=== PATIENT | female | born 1935 | race Caucasian/White ===

== ENCOUNTER 2016-11-23 09:24 | Emergency (ER) | payer OTHER ==
[~2016-11-23] VITALS: Ht 149.9 cm; Wt 54.4 kg
[~2016-11-23 09:24] MED LIST: IMODIUM 2 MG. CA2 MG PO; ZOFRAN ODT4 MG SL
[2016-11-23 09:27] VITALS: BP 132/73
--- NOTE | 2016-11-23 09:35 | ED GI/GU/ABDOMINAL COMPLAINT ---
History of Present Illness General Chief Complaint: Abdominal Pain/Flank Pain Stated Complaint: BURNING IN ESOPHAGUS, BLACK STOOL, ABD PAIN Source: patient Exam Limitations: no limitations Vital Signs & Intake/Output Vital Signs & Intake/Output Vital Signs Date Time Temp Pulse Resp B/P B/P Pulse O2 O2 Flow FiO2 Mean Ox Delivery Rate 11/23 0927 98.0 77 16 132/73 98 Room Air Allergies Coded Allergies: MDX - Benzocaine (From ZILACTIN-B) (Intermediate, HIVES 04/15/14) nausea/vomiting too codeine (SICK TO STOMACH 11/23/16) Reconcile Medications Lidocaine HCl (Lidocaine HCl Viscous) 2 % SOLUTION 15 ML PO TID GERD Loperamide HCl (Loperamide) 2 MG CAP 1 CAP PO SEE ADMIN CRITERIA PRN DIARRHEA 2 TABS AFTER NEXT LOOSE STOOL THEN 1 TAB AFTER EACH LOOSE STOOL UP TO 7 PER DAY Ondansetron (Zofran Odt) 4 MG ODT 1 ODT SL Q6P PRN NAUSEA Triage Note: PT TO TRIAGE C/O BURNING IN STOMACH AND ESOPHAGUS SINCE YESTERDAY WORSE WITH LAYING DOWN. STATES SHE HAS BEEN HAVING DIARRHEA SINCE THURSDAY AND STARTED HAVING DRY HEAVING THIS AM. STATES HER STOOL THIS AM WAS LOOSE AND BLACK. HAS BEEN USING PEPTO BISMOL FOR HER STOMACH WELL. Triage Nurses Notes Reviewed? yes ? N Is pt currently ? No Duration: getting worse Timing: recent history Quality/Severity: burning Severity Numbers: 5 Location: epigastric, generalized abdomen Radiation: no radiation HPI: Patient is a 81-year-old female with a past medical history of GERD and peptic ulcer disease currently on omeprazole, rheumatoid arthritis currently on methotrexate and ENBREL, MIGRAINE, LOW BACK PAIN IN WHICH SHE C/O OF GRADUAL ONSET OF EPIGASTRIC AND GENERALIZED ABDOMINAL BURNING SENSATIONS THAT HAS WORSENED IN THE LAST 24 HOURS. PT YESTERDAY TOOK PEPTO-BISMOL WITH MILD RELIEF however today symptoms still persisted in which patient also had dry heaves and noted black tarry watery stool on her first bowel movement today however second bowel movement black tarry stool had improved. Patient denies any bright red blood after bowel movement. Denies any fever or chest pain and arm pain jaw pain vaginal bleeding vaginal discharge dysuria hematuria. Patient denies any NSAID use. DENIES ETOH USE Patient does state that in the last 24 hours she's had decreased by mouth intake and states that sitting up makes it better lying down on her back makes her symptoms worse Patient however was able tolerate sips of broth noodles today (KATINA BASSETT) Past History Travel History Traveled to [place] past 21 day No Medical History Any Pertinent Medical History? see below for history Musculoskeletal: chronic back pain, rheumatoid arthritis Surgical History Surgical History: Psychosocial History What is your primary language Turkmen Tobacco Use: Never used Family History Hx Contributory? No (KATINA BASSETT) Review of Systems Review of Systems Constitutional: Reports: see HPI. Denies: fever. EENTM: Reports: no symptoms. Respiratory: Reports: no symptoms. Cardiovascular: Reports: no symptoms. GI: Reports: see HPI, abdominal pain, nausea, changes in stool. Genitourinary: Reports: no symptoms. Musculoskeletal: Reports: no symptoms. Skin: Reports: no symptoms. Neurological/Psychological: Reports: no symptoms. Hematologic/Endocrine: Reports: no symptoms. Immunologic/Allergic: Reports: no symptoms. All Other Systems: Reviewed and Negative (KATINA BASSETT) Physical Exam Physical Exam General Appearance: no apparent distress, alert, comfortable Gastrointestinal: normal bowel sounds, soft, GENERALIZED ABDOMINAL POINT TENDERNESS NOTED Rectal: normal inspection, heme negative stool, black stool Comments: Well-developed well-nourished person in no acute distress HEENT: Normal EENT exam, Neck: Supple, no lymphadenopathy, normal range of motion without pain or tenderness Back: Nontender, no CVA tenderness. Cardiovascular: Regular rate and rhythms no murmurs rubs or gallops, normal JVP Respiratory: Chest nontender. No respiratory distress.breath sounds clear to auscultation bilaterally Extremity: No edema, no calf tenderness to palpation, normal and equal pulses. Neuro: Alert oriented x3, motor sensory normal, Skin: No appreciable rash on exposed skin, skin is warm and dry. Psych: Mood and affect is normal, memory and judgment is normal. Core Measures ACS in differential dx? No Severe Sepsis Present: No Septic Shock Present: No (KATINA BASSETT) Progress Differential Diagnosis: AAA, AMI, appendicitis, biliary colic, bowel obstruction , colon cancer, cholecystitis, diverticulitis, endometritis, esophageal varices, gastritis, hepatitis, hernia, hemorrhoids, ischemic bowel, inflamm bowel dis, kidney stone, Suzie-Shabbir tear, ovarian cyst, ovarian torsion, pancreatitis, PID/cervicitis, peptic ulcer, PUD/GERD, perforated viscous, SBO, UTI/pyelo Plan of Care: Orders Procedure Date/time Status LIPASE 11/23 945 Complete COMPREHENSIVE METABOLIC PANEL 11/23 945 Complete CBC WITHOUT DIFFERENTIAL 11/23 945 Complete AMYLASE 11/23 945 Complete EKG 11/23 924 Active Laboratory Tests 11/23/16 1010: Anion Gap 7, Estimated GFR > 60, BUN/Creatinine Ratio 17.1, Glucose 96, Calcium 9.0, Total Bilirubin 0.3, AST 23, ALT 26, Alkaline Phosphatase 61, Total Protein 6.9, Albumin 3.9, Globulin 3.0, Albumin/Globulin Ratio 1.3, Amylase 78, Lipase 120, CBC w Diff NO MAN DIFF REQ, RBC 4.07 L, MCV 87.4, MCH 28.8, RDW 15.3 H, MPV 6.4 L, Gran % 60.9, Lymphocytes % 25.0, Monocytes % 12.2 H, Eosinophils % 1.5, Basophils % 0.4, Absolute Granulocytes 3.0, Absolute Lymphocytes 1.2, Absolute Monocytes 0.6, Absolute Eosinophils 0.1, Absolute Basophils 0, PUBS MCHC 33.0 Patient currently is resting comfortably at bedside no apparent distress denies any cardiovascular complaints. Normotensive and afebrile 11/23/2016 10:54:37 AM reevaluation the patient after GI cocktail was administered patient states that she feels more improved. Blood work was unremarkable CT scan currently is pending 11/23/2016 12:27:30 PM patient still resting comfortably at bedside CT scan currently is pending CT scan was unremarkable for acute findings. Due to history of has not is and exam findings or suspicion of patient having suspecting esophagitis GERD or peptic ulcer disease. Patient was strongly advised to follow-up with film mounter. Discussed his disposition plan with Dr. Raymond who agrees. Upon discharge patient looks well no apparent distress and will comply with discharge instructions and had no questions. (LYNNE NARVAEZ,KATINA) Diagnostic Imaging: Viewed by Me: CT Scan. Radiology Impression: SEE COMMENTS Initial ED EKG: normal p-waves, normal QRS complex, normal sinus rhythm, 70 BPM, NSR Comments: PATIENT: CLARITA CEE PRESENT AGE: 81 PATIENT ACCOUNT NO: [id number] : 37 LOCATION: [facility] ORDERING PHYSICIAN: KATINA NARVAEZ SERVICE DATE: 11/23/1627 EXAM TYPE: CAT - CT ABD & PELVIS W IV CONTRAST EXAMINATION: CT ABDOMEN AND PELVIS WITH CONTRAST CLINICAL INFORMATION: Abdominal pain. COMPARISON: None TECHNIQUE: Multidetector volumetric imaging was performed of the abdomen and pelvis before and after the IV administration of 95 mL of Optiray 320 intravenous contrast. Sagittal and coronal reformatted images were obtained on the technologist's workstation. DLP: 231.29 mGy-cm. FINDINGS: LUNG BASES: The visualized lung bases are unremarkable. LIVER, GALLBLADDER, AND BILIARY TREE: The liver is normal in size, shape, and attenuation. No focal hepatic lesion or biliary ductal dilatation is present. The gallbladder is unremarkable with no evidence of radiopaque gallstones, gallbladder wall thickening, or obvious pericholecystic inflammatory changes. PANCREAS: Unremarkable. There is upper limits of normal pancreatic ductal prominence measuring 0.3 cm in the head and body of the pancreas. No peripancreatic stranding or fluid. SPLEEN: Unremarkable. ADRENAL GLANDS: Unremarkable. KIDNEYS AND URETERS: The kidneys are normal in size, shape, and attenuation. No hydronephrosis, hydroureter, or calculi seen. No perinephric stranding. A subcentimeter low-attenuation in the lower pole of the left kidney (series 2 image 32) is too small to characterize accurately however statistically most likely represents a cyst. BLADDER: Unremarkable. GASTROINTESTINAL TRACT: There is moderate to extensive diverticulosis of the sigmoid colon and mild diverticulosis of the descending colon without acute diverticulitis. The portions of the colon are decompressed. No evidence of pericolonic fat stranding. An appendix is normal. The stomach and small bowel are not dilated. PERITONEAL CAVITY: No evidence of free intraperitoneal air or fluid. No inflammatory changes or nodularity seen in the omentum and mesentery. ABDOMINAL WALL: There are bilateral small inguinal hernias containing fat. LYMPH NODES: Normal. VASCULAR: The aortoiliac vessels are normal in caliber. There is mild scattered calcific atherosclerosis of the aortoiliac vessels. PELVIC VISCERA: The uterus is not seen, likely surgically absent. No adnexal mass. 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 There is some mild to moderate superior endplate compression of L3 mild anterior wedge compression of L1 and mild to moderate inferior endplate compression at T12. The findings are stable compared to previous thoracic spine MRI of 10/05/2015. No acute or suspicious osseous abnormality. IMPRESSION: 1. No acute or other significant abnormality is identified to explain patient's symptoms. 2. Colonic diverticulosis without acute diverticulitis. 3. A subcentimeter low-attenuation in the lower pole of the left kidney is too small to characterize accurately however probably statistically represents a cyst. (KATINA BASSETT) Departure Departure Disposition: HOME OR SELF CARE Condition: Stable Clinical Impression Primary Impression: Abdominal pain Referrals: JAVIER GARNER,DAI STANFORD MD,TOMMY Quiros (PCP/Family) Additional Instructions: As discussed continue home medications as directed especially your omeprazole. Begin the prescription of lidocaine and mixed this solution with over-the- counter Maalox and use as directed for your symptoms. On Thursday please follow up and establish a film mounter Dr. Paul for further evaluation and treatment. If symptoms worsen return to emergency room Departure Forms: Customer Survey General Discharge Information Prescriptions: Current Visit Scripts Lidocaine HCl (Lidocaine HCl Viscous) 15 ML PO TID #100 ML (KATINA BASSETT) PA/FISHER LOBSTER Co-Sign Statement Statement: ED Attending supervision documentation- [X] I saw and evaluated the patient. I have also reviewed all the pertinent lab results and diagnostic results. I agree with the findings and the plan of care as documented in the PA's/FISHER LOBSTER's documentation. [X] I have reviewed the ED Record and agree with the PA's/FISHER LOBSTER's documentation. [] Additions or exceptions (if any) to the PAs/FISHER LOBSTER's note and plan are summarized below: [] (SANTOS GARNER,VAZQUEZ Sanchez)
[2016-11-23 10:20] LABS: ABSOLUTE BASOPHIL COUNT 0 /CUMM (0.0-0.2); ABSOLUTE EOSINOPHIL COUNT 0.1 /CUMM (0.0-0.7); ABSOLUTE LYMPH COUNT 1.2 /CUMM (1.2-3.4); ABSOLUTE MONOCYTE COUNT 0.6 /CUMM (0.10-0.60); BASOPHIL % 0.4 % (0.0-2.0); EOSINOPHIL % 1.5 % (0-5); GRANULOCYTE % 60.9 % (42.2-75.2); HEMATOCRIT 35.5 % (37-47); MEAN CORPUSCULAR HGB 28.8 PG (27.0-31.0); MEAN CORPUSCULAR VOLUME 87.4 FL (81.0-99.0); MEAN PLATELET VOLUME 6.4 FL (7.4-10.4); PLATELET COUNT 269 /CUMM (130-400); RBC DISTRIBUTION WIDTH 15.3 % (11.5-14.5); RED BLOOD CELL CT 4.07 /CUMM (4.20-5.40); WHITE BLOOD CELL COUNT 4.9 /CUMM (4.8-10.8)
--- NOTE | 2016-11-23 12:43 | CT SCAN REPORT ---
EXAMINATION: CT ABDOMEN AND PELVIS WITH CONTRAST CLINICAL INFORMATION: Abdominal pain. COMPARISON: None TECHNIQUE: Multidetector volumetric imaging was performed of the abdomen and pelvis before and after the IV administration of 95 mL of Optiray 320 intravenous contrast. Sagittal and coronal reformatted images were obtained on the technologist's workstation. DLP: 231.29 mGy-cm. FINDINGS: LUNG BASES: The visualized lung bases are unremarkable. LIVER, GALLBLADDER, AND BILIARY TREE: The liver is normal in size, shape, and attenuation. No focal hepatic lesion or biliary ductal dilatation is present. The gallbladder is unremarkable with no evidence of radiopaque gallstones, gallbladder wall thickening, or obvious pericholecystic inflammatory changes. PANCREAS: Unremarkable. There is upper limits of normal pancreatic ductal prominence measuring 0.3 cm in the head and body of the pancreas. No peripancreatic stranding or fluid. SPLEEN: Unremarkable. ADRENAL GLANDS: Unremarkable. KIDNEYS AND URETERS: The kidneys are normal in size, shape, and attenuation. No hydronephrosis, hydroureter, or calculi seen. No perinephric stranding. A subcentimeter low-attenuation in the lower pole of the left kidney (series 2 image 32) is too small to characterize accurately however statistically most likely represents a cyst. BLADDER: Unremarkable. GASTROINTESTINAL TRACT: There is moderate to extensive diverticulosis of the sigmoid colon and mild diverticulosis of the descending colon without acute diverticulitis. The portions of the colon are decompressed. No evidence of pericolonic fat stranding. An appendix is normal. The stomach and small bowel are not dilated. PERITONEAL CAVITY: No evidence of free intraperitoneal air or fluid. No inflammatory changes or nodularity seen in the omentum and mesentery. ABDOMINAL WALL: There are bilateral small inguinal hernias containing fat. LYMPH NODES: Normal. VASCULAR: The aortoiliac vessels are normal in caliber. There is mild scattered calcific atherosclerosis of the aortoiliac vessels. PELVIC VISCERA: The uterus is not seen, likely surgically absent. No adnexal mass. 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 There is some mild to moderate superior endplate compression of L3 mild anterior wedge compression of L1 and mild to moderate inferior endplate compression at T12. The findings are stable compared to previous thoracic spine MRI of 10/05/2015. No acute or suspicious osseous abnormality. IMPRESSION: 1. No acute or other significant abnormality is identified to explain patient's symptoms. 2. Colonic diverticulosis without acute diverticulitis. 3. A subcentimeter low-attenuation in the lower pole of the left kidney is too small to characterize accurately however probably statistically represents a cyst.
[2016-11-23] MEDS ORDERED: LIDOCAINE HCL V15 ML PO (12:49)
== END 2016-11-23 13:21 ==
LOC: ERH 09:24
PROVIDERS: Physician Assistant
DX: R10.84 Generalized abdominal pain (principal)
CPT/HCPCS: 74177; 93005; 93010; 96361; 96374; J2405